=== PATIENT | female | born 1995 | race American Indian/Alaskan Native ===

== ENCOUNTER 2021-06-23 18:56 | Emergency (ER) | payer OTHER ==
[2021-06-23] MEDS ORDERED: ACETAMINOPHEN 325 MG TAB PO ONE (19:34)
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
[2021-06-23 19:54] VITALS: BP 134/80
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
== END 2021-06-23 23:00 | disposition home or self-care (01) ==
LOC: ED 18:56
DX: O9A.211 Injury, poisoning and certain other consequences of external causes complicating pregnancy, first trimester (principal); O30.001 Twin pregnancy, unspecified number of placenta and unspecified number of amniotic sacs, first trimester; S20.212A Contusion of left front wall of thorax, initial encounter; S86.912A Strain of unspecified muscle(s) and tendon(s) at lower leg level, left leg, initial encounter; Z3A.10 10 weeks gestation of pregnancy; Z98.890 Other specified postprocedural states; V87.7XXA Person injured in collision between other specified motor vehicles (traffic), initial encounter; Y93.89 Activity, other specified; Y92.89 Other specified places as the place of occurrence of the external cause; Y99.8 Other external cause status
CPT/HCPCS: 36415; 76801; 76802; 84702; 99284